=== PATIENT | male | born 1985 | race Caucasian/White ===

== ENCOUNTER → 2019-04-05 | Outpatient (CLI) | payer OTHER ==
[2019-04-05 13:29] VITALS: BP 129/83; PULSE 81; TEMP 97.2; BMI 44.7
[2019-04-05 15:18] LABS: HCT 49.1 % (39.0-53.0); HGB 16.6 gm/dL (13.0-17.5); MCH 31.3 pg (25.0-35.0); MCHC 33.7 g/dL (31.0-37.0); MCV 92.6 fL (80.0-100.0); Mean Platelet Volume 8.2; Platelet Count 322 k/uL (150-450); RDW 12.4 % (11.5-15.5)
[2019-04-05 20:13] LABS: Albumin 4.8 g/dL (3.80-4.90); Albumin/Globulin Ratio 2.53 (1.60-3.17); Anion Gap 8.1 mmol/L (4.00-12.00); BUN/Creat Ratio 17.5 Ratio (12.00-20.00); Calcium 9.6 mg/dL (8.7-10.3); Carbon Dioxide 24.9 mmol/L (21.6-31.8); Globulin 1.9 g/dL (1.6-3.3); Non-African American GFR(CKD) 117.4 (60.0-200.0); Potassium 4.7 mmol/L (3.5-5.5); Total Bilirubin 0.6 mg/dL (0.2-1.2); Total Protein 6.7 g/dL (6.2-8.2)
[2019-04-05 20:27] LABS: Folate, Serum 15.6 ng/mL
[2019-04-05 22:52] LABS: Hemoglobin A1C 5.3 % (4.0-6.0)
--- NOTE | 2019-04-08 11:51 | P.HPBAR ---
Bariatric H&P - History & Physicial H&P Date: 04/05/19 History & Physicial: Visit/CC: initial clinic visit Patient initial contact: Initial weight: Initial weight in pounds: Height: 6 ft 1.5 in Initial BMI: Last weight: Current weight: 156.036 kg Current weight in pounds: 344.00 Current BMI: 44.7 [place] body weight (based on NIH guidelines): 84.822 kg Excess body weight loss: The patient is a 33 year-old M who presents for Bariatric Assessment. Patient presents today for presurgical consultation. Patient is considering sleeve gastrectomy. His BMI is 45. He's had lifetime problems obesity. Past Medical History Past Medical History: Hypertension, Sleep Apnea/CPAP/BIPAP History of Any Multi-Drug Resistant Organisms: None Reported Past Surgical History: No Surgical Hx Reported Past Anesthesia/Blood Transfusion Reactions: No Reported Reaction Past Psychological History: No Psychological Hx Reported Smoking Status: Current every day smoker Past Alcohol Use History: None Reported Additional Past Alcohol Use History / Comment(s): smokes 1 pack per day Past Drug Use History: None Reported Surgical - Exam Vital Signs Temp Pulse BP 97.2 F L 81 129/83 04/05/19 13:25 04/05/19 13:25 04/05/19 13:25 - General well developed, well nourished, no distress - Eyes PERRL - ENT normal pinna, normal nares - Neck no masses - Respiratory normal expansion - Cardiovascular Rhythm: regular - Abdomen Abdomen: soft, non tender Results - Labs 04/05/19 13:58 04/05/19 13:58 Bariatric Assessment & Plan Plan: Morbid obesity. Patient's BMI is 45. Patient was scheduled for EGD. We went over the risks and benefits of procedure including conversion to the open procedure and injury to the stomach liver spleen, we also discussed possible gastric staple line disruption bleeding or perforation. The patient also a risk of GERD. Bariatric Checklist Checklist: Plan: Checklist: EGD: 1. Hiatal hernia: 2. H. Pylori: HgbA1c: Vitamin D: Smoking: Current every day smoker Primary care physician referral: dr chavez Psychiatry clearance: Cardiology clearance: Sleep study: Diet journal: VTE risk score: VTE risk level: Rehab needs at discharge:
== END | disposition home or self-care (01) ==
LOC: BARWHC3 12:44
PROVIDERS: ATTEND Surgery
DX: E88.81 Metabolic syndrome and other insulin resistance (principal); E66.01 Morbid (severe) obesity due to excess calories; Z68.42 Body mass index [BMI] 45.0-49.9, adult; F17.200 Nicotine dependence, unspecified, uncomplicated; E55.9 Vitamin D deficiency, unspecified
CPT/HCPCS: 36415; 80053; 82306; 82607; 82746; 83036; 84425; 85027; 93005; 99201

== ENCOUNTER 2019-04-22 07:39 | Day surgery (SDC) | payer OTHER ==
[2019-04-19 15:42] VITALS: BMI 44.3
[~2019-04-22 07:39] MED LIST: LACTATED RINGERS 1,000 ML IV SCH; LIDOCAINE 1% (10MG/ML) FOR IV START INTRADERMA PRN
[2019-04-22 08:18] VITALS: TEMP 97.9
[2019-04-22] MEDS ORDERED: GLYCOPYRROLATE 0.2 MG/ML 2 ML VIAL ONE (09:06)
[2019-04-22] MEDS ORDERED: LIDOCAINE 1% INJ 10MG/ML (20 ML MDV) ONE (09:06)
[2019-04-22] MEDS ORDERED: PROPOFOL 10 MG/ML 20 ML VIAL IV ONE (09:06)
[2019-04-22] MEDS ORDERED: MIDAZOLAM 2 MG/2 ML VIAL ONE (09:06)
[2019-04-22] MEDS ORDERED: KETAMINE 10 MG/ML 20 ML VIAL ONE (09:06)
--- NOTE | 2019-04-22 09:12 | P.GSHP ---
History of Present Illness H&P Date: 04/22/19 Chief Complaint: Morbid obesity, GERD This is a 33-year-old male been sick for EGD. Patient is undergoing workup for sleeve gastrectomy. Patient is morbidly obese is BMI is 45. He is also had GERD symptoms. Past Medical History Past Medical History: GERD/Reflux, Hypertension Additional Past Medical History / Comment(s): BACK PAIN - SEES CHIROPRACTOR PRN, SOME EDEMA RIGHT LEG., HEMORRHOIDS.,PSORIASIS. History of Any Multi-Drug Resistant Organisms: None Reported Past Surgical History: No Surgical Hx Reported Additional Past Surgical History / Comment(s): EAR TUBES INFANT Past Anesthesia/Blood Transfusion Reactions: No Reported Reaction Additional Past Anesthesia/Blood Transfusion Reaction / Comment(s): NO ANESTHESIA HX. Past Psychological History: Depression Additional Psychological History / Comment(s): DENIES CURRENT PROBLEMS. Smoking Status: Current every day smoker Past Alcohol Use History: Occasional Additional Past Alcohol Use History / Comment(s): smokes 1 pack per day, Started smoking age 16. Past Drug Use History: None Reported - Past Family History Mother Family Medical History: No Reported History Medications and Allergies Home Medications Medication Instructions Recorded Confirmed Type Furosemide [Lasix] 20 mg PO DAILY 04/19/19 04/22/19 History Potassium Chloride 10 meq PO DAILY 04/19/19 04/22/19 History amLODIPine BESYLATE 5 mg PO DAILY 04/19/19 04/22/19 History Allergies Allergy/AdvReac Type Severity Reaction Status Date / Time No Known Allergies Allergy Verified 04/22/19 08:21 Surgical - Exam Vital Signs Temp Pulse Resp BP Pulse Ox 97.9 F 79 18 133/69 96 04/22/19 08:10 04/22/19 08:10 04/22/19 08:10 04/22/19 08:10 04/22/19 08:10 - General well developed, well nourished, no distress - Eyes PERRL - ENT normal pinna - Neck no masses - Respiratory normal expansion - Cardiovascular Rhythm: regular - Abdomen Abdomen: soft, non tender Assessment and Plan Assessment: . Morbid obesity. We'll perform EGD.
--- NOTE | 2019-04-22 09:19 | P.OP ---
Date of Procedure: 04/22/19 Preoperative Diagnosis: Morbid obesity GERD Postoperative Diagnosis: Morbid obesity GERD Procedure(s) Performed: EGD Anesthesia: MAC Surgeon: Andrew Payne Pathology: other (Antrum) Condition: stable Disposition: PACU Description of Procedure: The patient's placed on the endoscopy table in the lateral position. She received IV sedation. The gastroscope placed oropharynx and passed into the esophagus and into the stomach. Scope was then placed through the pylorus. The first and second portion of the duodenum appeared normal. Scope was then brought back the antrum this. Mildly inflamed. A biopsies performed. Scope was unretroflexed and remainder of the stomach appeared normal. The GE junction was at 40 cm the distal esophagus appeared normal. The proximal esophagus appeared normal. The scope was then withdrawn for patient.
[2019-04-22 09:45] VITALS: BP 118/73; PULSE 71; RESP 16
== END 2019-04-22 09:50 | disposition home or self-care (01) ==
LOC: ORWHC2ENDO 07:39
PROVIDERS: ATTEND Surgery
DX: K29.50 Unspecified chronic gastritis without bleeding (principal); K21.0 Gastro-esophageal reflux disease with esophagitis; I10 Essential (primary) hypertension; G47.33 Obstructive sleep apnea (adult) (pediatric); E66.01 Morbid (severe) obesity due to excess calories; L40.9 Psoriasis, unspecified; F32.9 Major depressive disorder, single episode, unspecified; F17.210 Nicotine dependence, cigarettes, uncomplicated; Z79.899 Other long term (current) drug therapy; Z96.22 Myringotomy tube(s) status; Z68.42 Body mass index [BMI] 45.0-49.9, adult
CPT/HCPCS: 88305; 43239; J2250; J2001; J2704

== ENCOUNTER → 2019-06-07 | Outpatient (CLI) | payer OTHER ==
[2019-06-07 12:49] VITALS: BP 147/83; PULSE 79; RESP 16; TEMP 98.2
--- NOTE | 2019-06-07 14:55 | P.HPBAR ---
Bariatric H&P - History & Physicial H&P Date: 06/07/19 History & Physicial: Visit/CC: follow up after EGD Patient initial contact: Initial weight: Initial weight in pounds: Height: 6 ft 2 in Initial BMI: Last weight: Current weight: 161.479 kg Current weight in pounds: 356.00 Current BMI: [place] body weight (based on NIH guidelines): Excess body weight loss: The patient is a 33 year-old M who presents for Bariatric Assessment. Patient presents today for bariatric follow-up. He is ready for preauthorization for gastric sleeve surgery. His BMI is 46. He has significant comorbidities related to morbid obesity. He has an excellent understanding of the sleeve gastrectomy. He is were the risks of surgery including conversion to the open procedure and injury to the stomach liver spleen vagotomy dysphagia and gastric staple line disruption. Past Medical History Past Medical History: GERD/Reflux, Hypertension Additional Past Medical History / Comment(s): BACK PAIN - SEES CHIROPRACTOR PRN, SOME EDEMA RIGHT LEG., HEMORRHOIDS.,PSORIASIS. History of Any Multi-Drug Resistant Organisms: None Reported Past Surgical History: No Surgical Hx Reported Additional Past Surgical History / Comment(s): EAR TUBES INFANT Past Anesthesia/Blood Transfusion Reactions: No Reported Reaction Additional Past Anesthesia/Blood Transfusion Reaction / Comm: NO ANESTHESIA HX. Smoking Status: Current every day smoker - Past Family History Mother Family Medical History: No Reported History Surgical - Exam Vital Signs Temp Pulse Resp BP 98.2 F 79 16 147/83 06/07/19 12:47 06/07/19 12:47 06/07/19 12:47 06/07/19 12:47 - General well developed, well nourished, no distress - Eyes PERRL - ENT normal pinna - Neck no masses - Respiratory normal expansion - Cardiovascular Rhythm: regular - Abdomen Abdomen: soft, non tender Bariatric Assessment & Plan Plan: Morbid obesity, BMI 46. Patient will be scheduled for surgery once his authorization is complete. Bariatric Checklist Checklist: Plan: Checklist: EGD: 1. Hiatal hernia: 2. H. Pylori: HgbA1c: Vitamin D: Smoking: Current every day smoker Primary care physician referral: dr chavez Psychiatry clearance: Cardiology clearance: Sleep study: Diet journal: VTE risk score: VTE risk level: Rehab needs at discharge:
== END | disposition home or self-care (01) ==
LOC: BARWHC3 12:43
PROVIDERS: ATTEND Surgery
DX: E66.01 Morbid (severe) obesity due to excess calories (principal); Z68.42 Body mass index [BMI] 45.0-49.9, adult; F17.200 Nicotine dependence, unspecified, uncomplicated
CPT/HCPCS: 99211

== ENCOUNTER → 2019-07-05 | Outpatient (CLI) | payer OTHER ==
[2019-07-05 13:37] VITALS: BMI 47.0
== END | disposition home or self-care (01) ==
LOC: BARWHC3 08:21
PROVIDERS: ATTEND Surgery
DX: E66.01 Morbid (severe) obesity due to excess calories (principal); Z68.42 Body mass index [BMI] 45.0-49.9, adult
CPT/HCPCS: 97804